=== PATIENT | male | born 1980 | race Caucasian/White ===

== ENCOUNTER 2017-09-21 07:49 | Inpatient (IN) | payer OTHER ==
[2017-09-21] MEDS ORDERED: ZOLPIDEM 5 MG TAB PO (11:00)
[2017-09-21] MEDS ORDERED: DOCUSATE SODIUM 100 MG CAP PO (11:00)
[2017-09-21] MEDS ORDERED: VANCOMYCIN IV PER PHARMACY XX (11:00)
[2017-09-21] MEDS ORDERED: NACL 0.9% 3 ML SYG IV (11:00)
[2017-09-21] MEDS ORDERED: DEXTROSE 50% 50 ML SYRINGE IV ×2 (12:00)
[2017-09-21] MEDS ORDERED: GLUCAGON 1 MG INJ IM (12:00)
[2017-09-21] MEDS ORDERED: GLUCOSE GEL 15 GRAM TUBE BUCCAL (12:00)
[2017-09-21] MEDS ORDERED: GLUCOSE GEL 15 GRAM TUBE PO ×2 (12:00)
[2017-09-21] MEDS: morphine 2 MG INJ IV (12:33)
[2017-09-21] MEDS: PIPER-TAZO 3.375 GM IV (PMX) 100 ML IVPB ×2 (12:34→17:49)
[2017-09-21] MEDS: INSULIN ASPART [NOVOLOG] 3 ML PEN SC ×5 (13:08→21:00)
[2017-09-21] MEDS: VANCOMYCIN 2 GM in SOD CHLORIDE 0.9% 500 ML IVPB (13:18)
[2017-09-21] MEDS: HYDROCODONE/APAP (5/325) TAB PO ×2 (14:56→21:58)
[2017-09-21] MEDS: MAGNESIUM HYDROXIDE 30ML CUP PO (14:56)
[2017-09-21 15:04] LABS: BLOOD UREA NITROGEN 14 mg/dl (7-20)
[2017-09-21 15:04] LABS: CREATININE 0.88 mg/dl (0.61-1.24)
[2017-09-21] MEDS: ACETAMINOPHEN 325 MG TAB PO (21:48)
[2017-09-21] MEDS: INSULIN GLARGINE [LANtus] 3 ML PEN SC (21:51)
[2017-09-21] MEDS ORDERED: PENDING SANTYL ORDER FOR WOUND CARE XX (22:00)
[2017-09-22] MEDS: PIPER-TAZO 3.375 GM IV (PMX) 100 ML IVPB ×5 (01:10→23:46)
[2017-09-22] MEDS: COLLAGENASE 30 GM TUBE TOP ×2 (01:18→10:54)
[2017-09-22] MEDS: ACCU-CHEK XX (02:00)
[2017-09-22] MEDS: VANCOMYCIN 1.5 GM in SOD CHLORIDE 0.9% 250 ML IVPB ×2 (02:16→13:11)
[2017-09-22] MEDS: HYDROCODONE/APAP (5/325) TAB PO (04:06)
[2017-09-22] MEDS: ONDANSETRON 4 MG INJ IV ×2 (05:36→20:27)
[2017-09-22] MEDS: ACETAMINOPHEN 325 MG TAB PO ×2 (05:37→16:09)
[2017-09-22 06:06] LABS: ADD MAN DIFF? NO
[2017-09-22 06:19] LABS: BASOPHIL # 0.1 10^3/ul (0.0-0.1); BASOPHILS % 0.3 % (0.0-2.0); EOSINOPHILS % 0.1 % (0.0-7.0); HEMATOCRIT 41.7 % (42.0-52.0); HEMOGLOBIN 13.9 g/dl (14.0-18.0); LYMPHOCYTES # 0.6 10^3/ul (0.8-2.9); LYMPHOCYTES % 3.5 % (15.0-51.0); MEAN CORPUSCULAR HEMOGLOBIN 29.6 pg (29.0-33.0); MEAN CORPUSCULAR HGB CONC 33.3 g/dl (32.0-37.0); MEAN CORPUSCULAR VOLUME 88.7 fl (82.0-101.0); MEAN PLATELET VOLUME 10.9 fl (7.4-10.4); MONOCYTE # 0.4 10^3/ul (0.3-0.9); NEUTROPHIL # 16.9 10^3/ul (1.6-7.5); NEUTROPHILS % 93.5 % (39.0-77.0); PLATELET COUNT 333 10^3/UL (140-415); RED CELL DISTRIBUTION WIDTH 12.9 % (11.5-14.5)
[2017-09-22 06:19] LABS: WHITE BLOOD COUNT 18.1 10^3/ul (4.8-10.8)
[2017-09-22 06:51] LABS: ANION GAP 17 (8-16); BLOOD UREA NITROGEN 19 mg/dl (7-20); CALCIUM 8.4 mg/dl (8.4-10.2); CARBON DIOXIDE 27 mmol/L (21-31); CHLORIDE 101 mmol/L (97-110); CREATININE 1.08 mg/dl (0.61-1.24); GLUCOSE 216 mg/dl (70-220); POTASSIUM 4.4 mmol/L (3.5-5.1); SODIUM 141 mmol/L (135-144)
[2017-09-22 06:54] LABS: HEMOGLOBIN A1C 11.7 % (0-5.9)
[2017-09-22] MEDS: INSULIN ASPART [NOVOLOG] 3 ML PEN SC ×7 (08:45→20:32)
[2017-09-22 09:53] LABS: ADD UMIC YES; UR ASCORBIC ACID NEGATIVE (NEGATIVE); UR BACTERIA FEW /HPF (NONE SEEN); UR BILIRUBIN (Dip) NEGATIVE (NEGATIVE); UR BLOOD (Dip) 2+ mg/dL (NEGATIVE); UR CLARITY SLIGHTLY CLOUDY (CLEAR); UR COLOR YELLOW (YELLOW); UR GLUCOSE (Dip) 3+ mg/dL (NEGATIVE); UR KETONES (Dip) TRACE mg/dL (NEGATIVE); UR LEUKOCYTE ESTERASE (Dip) 3+ Leu/ul (NEGATIVE); UR NITRITE (Dip) NEGATIVE (NEGATIVE); UR RBC 23 /HPF (0-5); UR SPECIFIC GRAVITY (Dip) 1.021 (1.003-1.030); UR TOTAL PROTEIN (Dip) 1+ mg/dl (NEGATIVE); UR UROBILINOGEN (Dip) NEGATIVE (NEGATIVE); UR WBC 53 /HPF (0-5)
[2017-09-22] MEDS: INSULIN GLARGINE [LANtus] 3 ML PEN SC (20:34)
[2017-09-22] MEDS ORDERED: ONDANSETRON INJ 8 MG in DEXTROSE 5% 50 ML IV (23:30)
[2017-09-22] MEDS: METOCLOPRAMIDE 10 MG INJ IV (23:46)
[2017-09-23 01:24] LABS: VANCOMYCIN,TROUGH 9.4 ug/ml (10.0-20.0)
[2017-09-23] MEDS: ACCU-CHEK XX (01:25)
[2017-09-23] MEDS: VANCOMYCIN 1.5 GM in SOD CHLORIDE 0.9% 250 ML IVPB (01:28)
[2017-09-23 06:08] LABS: ADD MAN DIFF? NO
[2017-09-23 06:10] LABS: WHITE BLOOD COUNT 12.2 10^3/ul (4.8-10.8)
[2017-09-23 06:10] LABS: BASOPHILS % 0.2 % (0.0-2.0); EOSINOPHILS % 0.1 % (0.0-7.0); HEMATOCRIT 36.2 % (42.0-52.0); LYMPHOCYTES % 8.3 % (15.0-51.0); MEAN CORPUSCULAR HGB CONC 33.1 g/dl (32.0-37.0); MEAN CORPUSCULAR VOLUME 87.4 fl (82.0-101.0); MEAN PLATELET VOLUME 10.6 fl (7.4-10.4); MONOCYTE # 0.6 10^3/ul (0.3-0.9); MONOCYTES % 4.6 % (0.0-11.0); NEUTROPHIL # 10.6 10^3/ul (1.6-7.5); NEUTROPHILS % 86.3 % (39.0-77.0); PLATELET COUNT 260 10^3/UL (140-415); RED BLOOD COUNT 4.14 10^6/ul (4.70-6.10); RED CELL DISTRIBUTION WIDTH 12.9 % (11.5-14.5)
[2017-09-23] MEDS: PIPER-TAZO 3.375 GM IV (PMX) 100 ML IVPB ×3 (06:31→20:50)
[2017-09-23 06:33] LABS: ANION GAP 16 (8-16); BLOOD UREA NITROGEN 18 mg/dl (7-20); CALCIUM 7.8 mg/dl (8.4-10.2); CARBON DIOXIDE 25 mmol/L (21-31); CHLORIDE 104 mmol/L (97-110); CREATININE 1.16 mg/dl (0.61-1.24); GLUCOSE 133 mg/dl (70-220); POTASSIUM 3.9 mmol/L (3.5-5.1); SODIUM 141 mmol/L (135-144)
[2017-09-23 06:49] LABS: FREE THYROXINE INDEX (Calc) 2.37 ug/ml (0.65-3.89); T3 UPTAKE 47.4 % (23.5-40.5)
[2017-09-23] MEDS: INSULIN ASPART [NOVOLOG] 3 ML PEN SC ×8 (08:00→20:54)
[2017-09-23] MEDS: COLLAGENASE 30 GM TUBE TOP (09:00)
[2017-09-23 09:02] LABS: ERYTHROCYTE SEDIMENTATION RATE 118 mm/Hr (0-15)
[2017-09-23] MEDS: VANCOMYCIN 2 GM in SOD CHLORIDE 0.9% 500 ML IVPB (14:48)
[2017-09-23] MEDS ORDERED: INSULIN ASPART [NOVOLOG] 3 ML PEN SC (17:35)
[2017-09-23] MEDS: morphine 2 MG INJ IV (17:47)
[2017-09-23] MEDS: INSULIN GLARGINE [LANtus] 3 ML PEN SC (20:57)
[2017-09-24] MEDS: PIPER-TAZO 3.375 GM IV (PMX) 100 ML IVPB ×4 (00:13→11:59)
[2017-09-24] MEDS: HYDROCODONE/APAP (5/325) TAB PO ×3 (00:22→21:52)
[2017-09-24] MEDS: ACCU-CHEK XX (00:55)
[2017-09-24] MEDS: VANCOMYCIN 2 GM in SOD CHLORIDE 0.9% 500 ML IVPB ×2 (03:14→15:25)
[2017-09-24] MEDS: INSULIN ASPART [NOVOLOG] 3 ML PEN SC ×7 (08:00→21:00)
[2017-09-24] MEDS: COLLAGENASE 30 GM TUBE TOP (09:14)
[2017-09-24] MEDS: INFLUENZA VIRUS VACCINE 0.5 ML SYG IM* (12:00)
[2017-09-24] MEDS: morphine 2 MG INJ IV (15:26)
[2017-09-24] MEDS: INSULIN GLARGINE [LANtus] 3 ML PEN SC (21:53)
[2017-09-25] MEDS: ACCU-CHEK XX (02:00)
[2017-09-25] MEDS: VANCOMYCIN 2 GM in SOD CHLORIDE 0.9% 500 ML IVPB ×2 (03:40→15:06)
[2017-09-25] MEDS: HYDROCODONE/APAP (5/325) TAB PO ×3 (07:47→20:54)
[2017-09-25] MEDS: INSULIN ASPART [NOVOLOG] 3 ML PEN SC ×7 (08:00→20:52)
[2017-09-25] MEDS: COLLAGENASE 30 GM TUBE TOP (12:24)
[2017-09-25] MEDS: INSULIN GLARGINE [LANtus] 3 ML PEN SC (20:52)
[2017-09-26] MEDS: ACCU-CHEK XX ×2 (01:18→21:06)
[2017-09-26] MEDS: HYDROCODONE/APAP (5/325) TAB PO ×5 (02:36→22:06)
[2017-09-26] MEDS: VANCOMYCIN 1.75 GM in SOD CHLORIDE 0.9% 500 ML IVPB ×2 (02:36→16:01)
[2017-09-26] MEDS: MAGNESIUM HYDROXIDE 30ML CUP PO (03:01)
[2017-09-26 07:22] LABS: BLOOD UREA NITROGEN 16 mg/dl (7-20)
[2017-09-26] MEDS: INSULIN ASPART [NOVOLOG] 3 ML PEN SC ×7 (08:28→21:00)
[2017-09-26] MEDS: COLLAGENASE 30 GM TUBE TOP (08:29)
[2017-09-26] MEDS: LIDOCAINE 1% (MPF) 5 ML VIAL SC (16:55)
[2017-09-26] MEDS: SOD CHLORIDE 0.9% 100 ML (17:00)
[2017-09-26] MEDS: morphine 2 MG INJ IV (20:59)
[2017-09-26] MEDS: INSULIN GLARGINE [LANtus] 3 ML PEN SC (21:06)
[2017-09-26] MEDS: METOCLOPRAMIDE 10 MG INJ IV (21:14)
[2017-09-27] MEDS: VANCOMYCIN 1.75 GM in SOD CHLORIDE 0.9% 500 ML IVPB ×2 (03:45→15:13)
[2017-09-27] MEDS: METOCLOPRAMIDE 10 MG INJ IV (07:50)
[2017-09-27] MEDS: INSULIN ASPART [NOVOLOG] 3 ML PEN SC ×7 (08:00→21:00)
[2017-09-27] MEDS: COLLAGENASE 30 GM TUBE TOP (08:49)
[2017-09-27] MEDS: HYDROCODONE/APAP (5/325) TAB PO ×2 (10:05→18:18)
[2017-09-27] MEDS: INSULIN GLARGINE [LANtus] 3 ML PEN SC (22:11)
== END 2017-09-27 22:25 | disposition home health service (06) | DRG 872 ==
LOC: PP2 07:49
PROVIDERS: Internal Medicine
PROC: 02HV33Z Insertion of Infusion Device into Superior Vena Cava, Percutaneous Approach (ICD-10-PCS; principal; 2017-09-26)
DX: A41.9 Sepsis, unspecified organism (principal); E11.42 Type 2 diabetes mellitus with diabetic polyneuropathy; E11.621 Type 2 diabetes mellitus with foot ulcer; M86.9 Osteomyelitis, unspecified; E66.9 Obesity, unspecified; Z68.33 Body mass index [BMI] 33.0-33.9, adult; Z89.421 Acquired absence of other right toe(s); M21.40 Flat foot [pes planus] (acquired), unspecified foot; E11.65 Type 2 diabetes mellitus with hyperglycemia; F17.200 Nicotine dependence, unspecified, uncomplicated; N50.82 Scrotal pain; L97.522 Non-pressure chronic ulcer of other part of left foot with fat layer exposed; B95.4 Other streptococcus as the cause of diseases classified elsewhere; A49.02 Methicillin resistant Staphylococcus aureus infection, unspecified site; E11.610 Type 2 diabetes mellitus with diabetic neuropathic arthropathy; E11.69 Type 2 diabetes mellitus with other specified complication
CPT/HCPCS: 36569; 71045; 73718; 76870; 76937; 80048; 80202; 81001; 82565; 82962; 83036; 83735; 84100; 84436; 84479; 84520; 85025; 85651; 87040; 87070; 87081; 87086; 93306

== ENCOUNTER 2018-08-13 17:49 | Inpatient (IN) | payer OTHER ==
[2018-08-13 21:00] LABS: ADD MAN DIFF? NO; URINE BLOOD (Dip) POC Trace-lysed (NEGATIVE); URINE KETONES (Dip) POC Negative (NEGATIVE); URINE LEUKOCYTE EST (Dip) POC Negative (NEGATIVE); URINE NITRITE (Dip) POC Negative (NEGATIVE); URINE TOTAL PROTEIN POC Negative (NEGATIVE)
[2018-08-13 21:00] LABS: URINE PH (Dip) POC 5.5 (5.0-8.5)
[2018-08-13 21:03] LABS: BASOPHIL # 0.1 10^3/ul (0.0-0.1); BASOPHILS % 0.5 % (0.0-2.0); EOSINOPHILS # 0.3 10^3/ul (0.0-0.5); EOSINOPHILS % 1.9 % (0.0-7.0); HEMATOCRIT 47.5 % (42.0-52.0); HEMOGLOBIN 16.4 g/dl (14.0-18.0); LYMPHOCYTES # 2.5 10^3/ul (0.8-2.9); LYMPHOCYTES % 18.7 % (15.0-51.0); MEAN CORPUSCULAR HEMOGLOBIN 29.8 pg (29.0-33.0); MEAN CORPUSCULAR HGB CONC 34.5 g/dl (32.0-37.0); MEAN CORPUSCULAR VOLUME 86.2 fl (82.0-101.0); MEAN PLATELET VOLUME 10.8 fl (7.4-10.4); MONOCYTE # 0.6 10^3/ul (0.3-0.9); MONOCYTES % 4.3 % (0.0-11.0); NEUTROPHIL # 9.7 10^3/ul (1.6-7.5); PLATELET COUNT 360 10^3/UL (140-415); RED BLOOD COUNT 5.51 10^6/ul (4.70-6.10); RED CELL DISTRIBUTION WIDTH 13.5 % (11.5-14.5)
[2018-08-13 21:03] LABS: WHITE BLOOD COUNT 13.1 10^3/ul (4.8-10.8)
[2018-08-13 21:21] LABS: ANION GAP 12 (5-13); BLOOD UREA NITROGEN 19 mg/dl (7-20); CARBON DIOXIDE 23 mmol/L (21-31); CHLORIDE 101 mmol/L (97-110); CREATININE 1.06 mg/dl (0.61-1.24); Estimated GFR > 60 mL/min (>60); POTASSIUM 4.9 mmol/L (3.5-5.1); SODIUM 136 mmol/L (135-144)
[2018-08-13 21:23] LABS: GLUCOSE 423 mg/dl (70-220)
[2018-08-13 21:30] LABS: INR 0.93; PROTIME 12.6 Sec (11.9-14.9)
[2018-08-13 21:31] LABS: PARTIAL THROMBOPLASTIN TIME 32.3 Sec (23.0-35.0)
[2018-08-13 22:10] LABS: ERYTHROCYTE SEDIMENTATION RATE 35 mm/Hr (0-15)
[2018-08-13] MEDS ORDERED: DOCUSATE SODIUM 100 MG CAP PO (22:30)
[2018-08-13] MEDS ORDERED: morphine 2 MG INJ IV (22:30)
[2018-08-13] MEDS ORDERED: ENOXAPARIN 40 MG/0.4 ML SYG SC (22:30)
[2018-08-13] MEDS ORDERED: BISACODYL (EC) 5 MG TAB PO (22:30)
[2018-08-13] MEDS ORDERED: NACL 0.9% 3 ML SYG IV (22:30)
[2018-08-13] MEDS ORDERED: ACETAMINOPHEN 325 MG TAB PO (22:30)
[2018-08-13] MEDS ORDERED: ONDANSETRON 4 MG INJ IV (22:30)
[2018-08-13] MEDS: morphine 4 MG/ML VIAL IV (22:46)
[2018-08-13] MEDS: ONDANSETRON 4 MG INJ IV (22:46)
[2018-08-13] MEDS: HYDROCODONE/APAP (5/325) TAB PO (22:47)
[2018-08-13] MEDS: INSULIN LISPRO 100 UNIT/ML VIAL SC (23:03)
[2018-08-13] MEDS: SOD CHLORIDE 0.9% 1,000 ML IV (23:04)
[2018-08-13] MEDS: INSULIN GLARGINE [LANTus] (100 UNITS/ML) SYG SC (23:15)
[2018-08-13] MEDS: PIPER-TAZO 3.375 GM IV (PMX) 100 ML IVPB (23:17)
[2018-08-14] MEDS: VANCOMYCIN 1 GM (PMX) 250 ML IVPB (00:11)
[2018-08-14] MEDS ORDERED: PENDING SANTYL ORDER FOR WOUND CARE XX (01:30)
[2018-08-14] MEDS: INSULIN ASPART [NOVOLOG] 3 ML PEN SC ×7 (01:39→20:25)
[2018-08-14] MEDS ORDERED: VANCOMYCIN IV PER PHARMACY XX (02:00)
[2018-08-14] MEDS ORDERED: CEFTRIAXONE 2 GM/50 ML (PMX) 50 ML IVPB (02:00)
[2018-08-14] MEDS: ACCU-CHEK XX (02:00)
[2018-08-14] MEDS: CEFEPIME 2GM/50 ML (PMX) 50 ML IVPB ×3 (02:42→22:09)
[2018-08-14] MEDS: VANCOMYCIN HCL 1.25 GM in SOD CHLORIDE 0.9% 250 ML IVPB (05:34)
[2018-08-14] MEDS: PANTOPRAZOLE (EC) 40 MG TAB PO (05:34)
[2018-08-14 06:19] LABS: ADD MAN DIFF? NO
[2018-08-14 06:26] LABS: WHITE BLOOD COUNT 10.6 10^3/ul (4.8-10.8)
[2018-08-14 06:26] LABS: BASOPHIL # 0.1 10^3/ul (0.0-0.1); BASOPHILS % 0.6 % (0.0-2.0); EOSINOPHILS # 0.4 10^3/ul (0.0-0.5); EOSINOPHILS % 3.7 % (0.0-7.0); HEMATOCRIT 40.4 % (42.0-52.0); HEMOGLOBIN 13.7 g/dl (14.0-18.0); LYMPHOCYTES % 28.8 % (15.0-51.0); MEAN CORPUSCULAR HEMOGLOBIN 29.8 pg (29.0-33.0); MEAN CORPUSCULAR HGB CONC 33.9 g/dl (32.0-37.0); MEAN CORPUSCULAR VOLUME 87.8 fl (82.0-101.0); MEAN PLATELET VOLUME 10.6 fl (7.4-10.4); MONOCYTE # 0.6 10^3/ul (0.3-0.9); MONOCYTES % 5.4 % (0.0-11.0); NEUTROPHIL # 6.4 10^3/ul (1.6-7.5); NEUTROPHILS % 60.8 % (39.0-77.0); PLATELET COUNT 296 10^3/UL (140-415); RED CELL DISTRIBUTION WIDTH 13.5 % (11.5-14.5)
[2018-08-14 06:45] LABS: HEMOGLOBIN A1C 12.5 % (0-5.9)
[2018-08-14 06:56] LABS: ALANINE AMINOTRANSFERASE 17 IU/L (13-69); ALBUMIN 3.6 g/dl (3.3-4.9); ALBUMIN/GLOBULIN RATIO 1.02; ALKALINE PHOSPHATASE 112 IU/L (42-121); ANION GAP 11 (5-13); ASPARTATE AMINO TRANSFERASE 17 IU/L (15-46); BILIRUBIN,INDIRECT 0.3 mg/dl (0-1.1); BILIRUBIN,TOTAL 0.3 mg/dl (0.2-1.3); BLOOD UREA NITROGEN 17 mg/dl (7-20); CALCIUM 9.1 mg/dl (8.4-10.2); CARBON DIOXIDE 25 mmol/L (21-31); CHLORIDE 102 mmol/L (97-110); CHOL/HDL RATIO 6.4 RATIO; CHOLESTEROL 135 mg/dl (100-200); CREATININE 1.04 mg/dl (0.61-1.24); Estimated GFR > 60 mL/min (>60); GLUCOSE 237 mg/dl (70-220); HDL CHOLESTEROL 21 mg/dl (28-63); LDL CHOLESTEROL,CALCULATED 28 mg/dl; MAGNESIUM 2.1 mg/dl (1.7-2.5); POTASSIUM 4.4 mmol/L (3.5-5.1); SODIUM 138 mmol/L (135-144); TOTAL PROTEIN 7.1 g/dl (6.1-8.1); TRIGLYCERIDES 432 mg/dl (0-149)
[2018-08-14] MEDS: COLLAGENASE 5 GM (UD JAR) TOP (08:57)
[2018-08-14] MEDS ORDERED: GLUCOSE GEL 15 GRAM TUBE PO ×2 (09:00)
[2018-08-14] MEDS ORDERED: NON-FORMULARY/PATIENT OWN MED (Omeprazole* 20 MG) PO (09:00)
[2018-08-14] MEDS ORDERED: COLLAGENASE 5 GM (UD JAR) TOP (09:00)
[2018-08-14] MEDS ORDERED: GLUCOSE GEL 15 GRAM TUBE BUCCAL (09:00)
[2018-08-14] MEDS ORDERED: GLUCAGON 1 MG INJ IM (09:00)
[2018-08-14] MEDS ORDERED: DEXTROSE 50% 50 ML SYRINGE IV ×2 (09:00)
[2018-08-14] MEDS: INSULIN GLARGINE [LANTus] (100 UNITS/ML) SYG SC ×2 (12:23→20:25)
[2018-08-14] MEDS: HYDROCODONE/APAP (5/325) TAB PO (12:28)
[2018-08-14] MEDS: morphine SULFATE/PF (2 MG/2 ML) SYG IV (16:46)
[2018-08-14] MEDS: VANCOMYCIN HCL 1.75 GM in SOD CHLORIDE 0.9% 500 ML IVPB (17:58)
[2018-08-14] MEDS: CLOTRIMAZOLE 1% 30 GM CR TOP (22:10)
[2018-08-15] MEDS: ACCU-CHEK XX (01:33)
[2018-08-15] MEDS: PANTOPRAZOLE (EC) 40 MG TAB PO (05:30)
[2018-08-15] MEDS: VANCOMYCIN HCL 1.75 GM in SOD CHLORIDE 0.9% 500 ML IVPB ×2 (05:31→17:55)
[2018-08-15 05:52] LABS: ADD MAN DIFF? NO
[2018-08-15 05:55] LABS: WHITE BLOOD COUNT 10.6 10^3/ul (4.8-10.8)
[2018-08-15 05:55] LABS: BASOPHIL # 0.1 10^3/ul (0.0-0.1); BASOPHILS % 0.6 % (0.0-2.0); EOSINOPHILS # 0.3 10^3/ul (0.0-0.5); HEMATOCRIT 42.2 % (42.0-52.0); HEMOGLOBIN 13.9 g/dl (14.0-18.0); LYMPHOCYTES # 2.2 10^3/ul (0.8-2.9); LYMPHOCYTES % 20.5 % (15.0-51.0); MEAN CORPUSCULAR HEMOGLOBIN 29.3 pg (29.0-33.0); MEAN CORPUSCULAR HGB CONC 32.9 g/dl (32.0-37.0); MEAN PLATELET VOLUME 10.7 fl (7.4-10.4); MONOCYTE # 0.5 10^3/ul (0.3-0.9); MONOCYTES % 4.6 % (0.0-11.0); NEUTROPHIL # 7.4 10^3/ul (1.6-7.5); NEUTROPHILS % 70.3 % (39.0-77.0); PLATELET COUNT 312 10^3/UL (140-415); RED BLOOD COUNT 4.74 10^6/ul (4.70-6.10); RED CELL DISTRIBUTION WIDTH 13.3 % (11.5-14.5)
[2018-08-15 06:42] LABS: ANION GAP 10 (5-13); BLOOD UREA NITROGEN 15 mg/dl (7-20); CALCIUM 8.8 mg/dl (8.4-10.2); CARBON DIOXIDE 24 mmol/L (21-31); CHLORIDE 102 mmol/L (97-110); CREATININE 0.93 mg/dl (0.61-1.24); Estimated GFR > 60 mL/min (>60); GLUCOSE 264 mg/dl (70-220); POTASSIUM 4.4 mmol/L (3.5-5.1); SODIUM 136 mmol/L (135-144)
[2018-08-15] MEDS: CLOTRIMAZOLE 1% 30 GM CR TOP ×2 (08:19→21:17)
[2018-08-15] MEDS: COLLAGENASE 5 GM (UD JAR) TOP (08:19)
[2018-08-15] MEDS: CEFEPIME 2GM/50 ML (PMX) 50 ML IVPB ×2 (08:19→21:18)
[2018-08-15] MEDS: INSULIN ASPART [NOVOLOG] 3 ML PEN SC ×7 (08:22→21:00)
[2018-08-15] MEDS: INSULIN GLARGINE [LANTus] (100 UNITS/ML) SYG SC ×2 (08:23→21:24)
[2018-08-15] MEDS: GEMFIBROZIL 600 MG TAB PO ×2 (10:18→21:17)
[2018-08-15] MEDS: HYDROCODONE/APAP (5/325) TAB PO ×2 (15:53→23:40)
[2018-08-15 17:46] LABS: VANCOMYCIN,TROUGH 11.3 ug/ml (10.0-20.0)
[2018-08-15] MEDS ORDERED: ATORVASTATIN 40 MG TAB PO (21:00)
[2018-08-15] MEDS: ATORVASTATIN 10 MG TAB PO (21:17)
[2018-08-16] MEDS: ACCU-CHEK XX ×4 (02:00→21:00)
[2018-08-16] MEDS: PANTOPRAZOLE (EC) 40 MG TAB PO (05:53)
[2018-08-16] MEDS: VANCOMYCIN HCL 1.75 GM in SOD CHLORIDE 0.9% 500 ML IVPB ×2 (05:54→17:42)
[2018-08-16 06:19] LABS: ADD MAN DIFF? NO
[2018-08-16] MEDS: HYDROCODONE/APAP (5/325) TAB PO ×2 (06:24→23:47)
[2018-08-16 06:30] LABS: WHITE BLOOD COUNT 8.9 10^3/ul (4.8-10.8)
[2018-08-16 06:30] LABS: BASOPHIL # 0.1 10^3/ul (0.0-0.1); BASOPHILS % 0.6 % (0.0-2.0); EOSINOPHILS # 0.3 10^3/ul (0.0-0.5); EOSINOPHILS % 3.6 % (0.0-7.0); HEMATOCRIT 41.7 % (42.0-52.0); HEMOGLOBIN 13.9 g/dl (14.0-18.0); LYMPHOCYTES # 2.4 10^3/ul (0.8-2.9); LYMPHOCYTES % 27.4 % (15.0-51.0); MEAN CORPUSCULAR HEMOGLOBIN 29.5 pg (29.0-33.0); MEAN CORPUSCULAR HGB CONC 33.3 g/dl (32.0-37.0); MEAN CORPUSCULAR VOLUME 88.5 fl (82.0-101.0); MEAN PLATELET VOLUME 10.9 fl (7.4-10.4); MONOCYTE # 0.4 10^3/ul (0.3-0.9); MONOCYTES % 4.3 % (0.0-11.0); NEUTROPHIL # 5.6 10^3/ul (1.6-7.5); NEUTROPHILS % 63.2 % (39.0-77.0); PLATELET COUNT 204 10^3/UL (140-415); RED BLOOD COUNT 4.71 10^6/ul (4.70-6.10); RED CELL DISTRIBUTION WIDTH 13.3 % (11.5-14.5)
[2018-08-16 06:50] LABS: ANION GAP 9 (5-13); BLOOD UREA NITROGEN 13 mg/dl (7-20); CALCIUM 9.1 mg/dl (8.4-10.2); CARBON DIOXIDE 24 mmol/L (21-31); CHLORIDE 104 mmol/L (97-110); CREATININE 0.82 mg/dl (0.61-1.24); Estimated GFR > 60 mL/min (>60); GLUCOSE 218 mg/dl (70-220); POTASSIUM 4.5 mmol/L (3.5-5.1); SODIUM 137 mmol/L (135-144)
[2018-08-16] MEDS: INSULIN ASPART [NOVOLOG] 3 ML PEN SC ×5 (08:00→21:00)
[2018-08-16] MEDS: CLOTRIMAZOLE 1% 30 GM CR TOP ×2 (08:01→21:27)
[2018-08-16] MEDS: INSULIN GLARGINE [LANTus] (100 UNITS/ML) SYG SC ×2 (08:01→20:01)
[2018-08-16] MEDS: GEMFIBROZIL 600 MG TAB PO ×2 (08:01→21:21)
[2018-08-16] MEDS: COLLAGENASE 5 GM (UD JAR) TOP (08:02)
[2018-08-16] MEDS: CEFEPIME 2GM/50 ML (PMX) 50 ML IVPB ×2 (10:32→21:21)
[2018-08-16] MEDS: morphine 2 MG INJ IV ×2 (10:44→21:40)
[2018-08-16] MEDS: metFORMIN 850 MG TAB PO ×2 (12:21→17:20)
[2018-08-16] MEDS: REPAGLINIDE 2 MG TAB PO ×2 (12:21→17:20)
[2018-08-16] MEDS: FISH OIL 1,000 MG CAP PO (21:21)
[2018-08-16] MEDS: ATORVASTATIN 10 MG TAB PO (21:40)
[2018-08-17] MEDS: ACCU-CHEK XX ×5 (02:00→21:00)
[2018-08-17] MEDS: PANTOPRAZOLE (EC) 40 MG TAB PO (06:30)
[2018-08-17] MEDS: VANCOMYCIN HCL 1.75 GM in SOD CHLORIDE 0.9% 500 ML IVPB (06:33)
[2018-08-17] MEDS: REPAGLINIDE 2 MG TAB PO ×3 (08:09→17:20)
[2018-08-17] MEDS: metFORMIN 850 MG TAB PO ×2 (08:09→17:23)
[2018-08-17] MEDS: INSULIN GLARGINE [LANTus] (100 UNITS/ML) SYG SC ×2 (08:11→20:12)
[2018-08-17] MEDS: INSULIN ASPART [NOVOLOG] 3 ML PEN SC ×4 (08:12→21:00)
[2018-08-17] MEDS: COLLAGENASE 5 GM (UD JAR) TOP (09:00)
[2018-08-17] MEDS: CLOTRIMAZOLE 1% 30 GM CR TOP ×2 (09:00→21:16)
[2018-08-17] MEDS: CEFEPIME 2GM/50 ML (PMX) 50 ML IVPB (09:14)
[2018-08-17] MEDS: GEMFIBROZIL 600 MG TAB PO ×2 (09:14→21:13)
[2018-08-17] MEDS: FISH OIL 1,000 MG CAP PO ×2 (09:14→21:12)
[2018-08-17] MEDS: ACETYLCYSTEINE 600 MG CAP PO ×2 (17:19→21:13)
[2018-08-17] MEDS: HYDROCODONE/APAP (5/325) TAB PO ×2 (17:31→23:32)
[2018-08-17] MEDS: LEVOFLOXACIN 750 MG TABLET PO (18:43)
[2018-08-17] MEDS: AMPICILLIN 1 GM/NS (PMX) 50 ML IVPB (20:04)
[2018-08-17] MEDS: morphine 2 MG INJ IV (20:04)
[2018-08-17] MEDS: ATORVASTATIN 40 MG TAB PO (21:13)
[2018-08-18] MEDS: ACCU-CHEK XX ×5 (02:00→21:00)
[2018-08-18] MEDS: LEVOFLOXACIN 750 MG TABLET PO (06:14)
[2018-08-18] MEDS: AMPICILLIN 1 GM/NS (PMX) 50 ML IVPB ×3 (06:14→22:04)
[2018-08-18] MEDS: PANTOPRAZOLE (EC) 40 MG TAB PO (06:14)
[2018-08-18 07:09] LABS: ANION GAP 11 (5-13); BLOOD UREA NITROGEN 12 mg/dl (7-20); CALCIUM 9.3 mg/dl (8.4-10.2); CARBON DIOXIDE 24 mmol/L (21-31); CHLORIDE 104 mmol/L (97-110); CREATININE 0.88 mg/dl (0.61-1.24); Estimated GFR > 60 mL/min (>60); GLUCOSE 119 mg/dl (70-220); SODIUM 139 mmol/L (135-144)
[2018-08-18] MEDS: REPAGLINIDE 2 MG TAB PO ×3 (07:35→17:30)
[2018-08-18] MEDS: metFORMIN 850 MG TAB PO ×2 (08:00→17:31)
[2018-08-18] MEDS: DEXTROSE 5%-0.45% NACL 1,000 ML IV (08:56)
[2018-08-18] MEDS: FISH OIL 1,000 MG CAP PO ×2 (08:57→20:26)
[2018-08-18] MEDS: GEMFIBROZIL 600 MG TAB PO ×2 (08:57→20:26)
[2018-08-18] MEDS: ACETYLCYSTEINE 600 MG CAP PO ×2 (08:57→20:26)
[2018-08-18] MEDS: INSULIN ASPART [NOVOLOG] 3 ML PEN SC ×4 (08:59→21:00)
[2018-08-18] MEDS: INSULIN GLARGINE [LANTus] (100 UNITS/ML) SYG SC ×2 (09:00→20:25)
[2018-08-18] MEDS: CLOTRIMAZOLE 1% 30 GM CR TOP ×2 (09:00→21:00)
[2018-08-18] MEDS: COLLAGENASE 5 GM (UD JAR) TOP (09:00)
[2018-08-18] MEDS ORDERED: LIDOCAINE 1% (MDV) 20 ML INJ (10:39)
[2018-08-18] MEDS ORDERED: IODIXANOL LOCM 100 ML BTL (10:39)
[2018-08-18] MEDS ORDERED: HEPARIN 1000 UNITS/NS (A-LINE) 1,000 ML (10:39)
[2018-08-18] MEDS ORDERED: MIDAZOLAM 1 MG/ML 2 ML INJ (13:00)
[2018-08-18] MEDS: BUPIVACAINE 0.5% (SDV) 30 ML INJ (13:05)
[2018-08-18] MEDS: POLYMYXIN/BACITRACIN 1L IRRIG IRR (13:27)
[2018-08-18] MEDS: VANCOMYCIN 1 GM INJ (13:43)
[2018-08-18] MEDS ORDERED: ONDANSETRON 4 MG INJ (14:05)
[2018-08-18] MEDS ORDERED: LIDOCAINE 2% (SDV) 5 ML INJ (14:05)
[2018-08-18] MEDS ORDERED: CEFAZOLIN 1 GM INJ (14:05)
[2018-08-18] MEDS ORDERED: PROPOFOL 20 ML (14:05)
[2018-08-18] MEDS ORDERED: FENTAnyl 50 MCG/ML VIAL IV (14:30)
[2018-08-18] MEDS ORDERED: LABETALOL HCL 20MG INJ IV (14:30)
[2018-08-18] MEDS ORDERED: HYDROmorphONE 1 MG/5 ML IV SYRINGE IV ×2 (14:30)
[2018-08-18] MEDS ORDERED: hydrALAzine 20 MG INJ IV (14:30)
[2018-08-18] MEDS ORDERED: DIPHENHYDRAMINE 50 MG INJ IV (14:30)
[2018-08-18] MEDS ORDERED: MEPERIDINE 25 MG INJ IV (14:30)
[2018-08-18] MEDS ORDERED: ONDANSETRON 4 MG INJ IV (14:30)
[2018-08-18] MEDS: morphine 2 MG INJ IV ×2 (17:27→22:10)
[2018-08-18] MEDS: ATORVASTATIN 40 MG TAB PO (20:26)
[2018-08-19] MEDS: HYDROCODONE/APAP (5/325) TAB PO ×3 (01:03→23:40)
[2018-08-19] MEDS: ACCU-CHEK XX ×5 (02:00→21:00)
[2018-08-19] MEDS: PANTOPRAZOLE (EC) 40 MG TAB PO (05:51)
[2018-08-19] MEDS: LEVOFLOXACIN 750 MG TABLET PO (05:51)
[2018-08-19] MEDS: AMPICILLIN 1 GM/NS (PMX) 50 ML IVPB ×3 (05:51→21:31)
[2018-08-19 06:26] LABS: ADD MAN DIFF? NO
[2018-08-19 06:30] LABS: BASOPHIL # 0.1 10^3/ul (0.0-0.1); BASOPHILS % 0.5 % (0.0-2.0); EOSINOPHILS # 0.3 10^3/ul (0.0-0.5); EOSINOPHILS % 2.1 % (0.0-7.0); HEMATOCRIT 43.3 % (42.0-52.0); HEMOGLOBIN 14.1 g/dl (14.0-18.0); LYMPHOCYTES # 2.8 10^3/ul (0.8-2.9); LYMPHOCYTES % 21.7 % (15.0-51.0); MEAN CORPUSCULAR HEMOGLOBIN 29.6 pg (29.0-33.0); MEAN CORPUSCULAR HGB CONC 32.6 g/dl (32.0-37.0); MEAN PLATELET VOLUME 10.1 fl (7.4-10.4); MONOCYTE # 0.7 10^3/ul (0.3-0.9); MONOCYTES % 5.4 % (0.0-11.0); PLATELET COUNT 352 10^3/UL (140-415); RED BLOOD COUNT 4.76 10^6/ul (4.70-6.10); RED CELL DISTRIBUTION WIDTH 13.4 % (11.5-14.5)
[2018-08-19 06:30] LABS: WHITE BLOOD COUNT 13.1 10^3/ul (4.8-10.8)
[2018-08-19 07:02] LABS: ANION GAP 13 (5-13); BLOOD UREA NITROGEN 13 mg/dl (7-20); CALCIUM 9.5 mg/dl (8.4-10.2); CARBON DIOXIDE 24 mmol/L (21-31); CHLORIDE 104 mmol/L (97-110); Estimated GFR > 60 mL/min (>60); GLUCOSE 75 mg/dl (70-220); POTASSIUM 3.7 mmol/L (3.5-5.1); SODIUM 141 mmol/L (135-144)
[2018-08-19] MEDS: INSULIN ASPART [NOVOLOG] 3 ML PEN SC ×4 (08:00→21:00)
[2018-08-19] MEDS: REPAGLINIDE 2 MG TAB PO ×3 (09:05→18:41)
[2018-08-19] MEDS: COLLAGENASE 5 GM (UD JAR) TOP (09:06)
[2018-08-19] MEDS: FISH OIL 1,000 MG CAP PO ×2 (09:06→20:48)
[2018-08-19] MEDS: metFORMIN 850 MG TAB PO ×2 (09:06→18:41)
[2018-08-19] MEDS: ACETYLCYSTEINE 600 MG CAP PO ×2 (09:06→20:48)
[2018-08-19] MEDS: CLOTRIMAZOLE 1% 30 GM CR TOP ×2 (09:07→20:49)
[2018-08-19] MEDS: INSULIN GLARGINE [LANTus] (100 UNITS/ML) SYG SC (09:09)
[2018-08-19] MEDS: GEMFIBROZIL 600 MG TAB PO ×2 (09:11→20:48)
[2018-08-19] MEDS: morphine LIQ (10 MG/5 ML) CUP PO (14:37)
[2018-08-19] MEDS: ATORVASTATIN 40 MG TAB PO (20:48)
[2018-08-20] MEDS: ACCU-CHEK XX ×5 (02:00→21:03)
[2018-08-20] MEDS: AMPICILLIN 1 GM/NS (PMX) 50 ML IVPB ×3 (05:40→20:54)
[2018-08-20] MEDS: LEVOFLOXACIN 750 MG TABLET PO (05:41)
[2018-08-20] MEDS: PANTOPRAZOLE (EC) 40 MG TAB PO (05:41)
[2018-08-20] MEDS: HYDROCODONE/APAP (5/325) TAB PO ×2 (05:47→15:22)
[2018-08-20 05:56] LABS: ADD MAN DIFF? NO
[2018-08-20 06:01] LABS: BASOPHIL # 0.1 10^3/ul (0.0-0.1); BASOPHILS % 0.5 % (0.0-2.0); EOSINOPHILS # 0.2 10^3/ul (0.0-0.5); EOSINOPHILS % 2.2 % (0.0-7.0); HEMATOCRIT 40.9 % (42.0-52.0); HEMOGLOBIN 13.4 g/dl (14.0-18.0); LYMPHOCYTES # 2.5 10^3/ul (0.8-2.9); MEAN CORPUSCULAR HEMOGLOBIN 29.3 pg (29.0-33.0); MEAN CORPUSCULAR HGB CONC 32.8 g/dl (32.0-37.0); MEAN CORPUSCULAR VOLUME 89.5 fl (82.0-101.0); MEAN PLATELET VOLUME 10.2 fl (7.4-10.4); MONOCYTE # 0.6 10^3/ul (0.3-0.9); MONOCYTES % 5.2 % (0.0-11.0); NEUTROPHIL # 7.4 10^3/ul (1.6-7.5); NEUTROPHILS % 68.2 % (39.0-77.0); PLATELET COUNT 322 10^3/UL (140-415); RED BLOOD COUNT 4.57 10^6/ul (4.70-6.10); RED CELL DISTRIBUTION WIDTH 13.7 % (11.5-14.5)
[2018-08-20 06:01] LABS: WHITE BLOOD COUNT 10.9 10^3/ul (4.8-10.8)
[2018-08-20 06:56] LABS: ANION GAP 10 (5-13); BLOOD UREA NITROGEN 10 mg/dl (7-20); CALCIUM 9.3 mg/dl (8.4-10.2); CARBON DIOXIDE 26 mmol/L (21-31); CHLORIDE 104 mmol/L (97-110); CREATININE 0.93 mg/dl (0.61-1.24); Estimated GFR > 60 mL/min (>60); GLUCOSE 73 mg/dl (70-220); POTASSIUM 3.8 mmol/L (3.5-5.1); SODIUM 140 mmol/L (135-144)
[2018-08-20] MEDS ORDERED: INSULIN GLARGINE [LANTus] (100 UNITS/ML) SYG SC (08:00)
[2018-08-20] MEDS: INSULIN ASPART [NOVOLOG] 3 ML PEN SC ×4 (08:00→21:00)
[2018-08-20] MEDS: REPAGLINIDE 2 MG TAB PO ×2 (08:34→11:30)
[2018-08-20] MEDS: metFORMIN 850 MG TAB PO ×2 (08:35→18:05)
[2018-08-20] MEDS: INSULIN GLARGINE [LANTus] (100 UNITS/ML) SYG SC (08:51)
[2018-08-20] MEDS: COLLAGENASE 5 GM (UD JAR) TOP (08:51)
[2018-08-20] MEDS: ASPIRIN 81 MG TAB PO (08:52)
[2018-08-20] MEDS: FISH OIL 1,000 MG CAP PO ×2 (08:52→20:59)
[2018-08-20] MEDS: morphine LIQ (10 MG/5 ML) CUP PO (08:52)
[2018-08-20] MEDS: ACETYLCYSTEINE 600 MG CAP PO ×2 (08:53→20:59)
[2018-08-20] MEDS: CLOTRIMAZOLE 1% 30 GM CR TOP ×2 (08:53→21:00)
[2018-08-20] MEDS: GEMFIBROZIL 600 MG TAB PO ×2 (08:53→20:59)
[2018-08-20] MEDS: ALTEPLASE (CATHFLO) 2 MG INJ CATHETER (14:57)
[2018-08-20] MEDS: REPAGLINIDE 1 MG TAB PO (18:05)
[2018-08-20] MEDS: ATORVASTATIN 40 MG TAB PO (20:59)
[2018-08-21] MEDS: ACCU-CHEK XX ×3 (02:00→11:30)
[2018-08-21] MEDS: LEVOFLOXACIN 750 MG TABLET PO (05:20)
[2018-08-21] MEDS: AMPICILLIN 1 GM/NS (PMX) 50 ML IVPB ×2 (05:20→13:05)
[2018-08-21] MEDS: PANTOPRAZOLE (EC) 40 MG TAB PO (05:20)
[2018-08-21 06:21] LABS: ANION GAP 10 (5-13); BLOOD UREA NITROGEN 12 mg/dl (7-20); CALCIUM 9.4 mg/dl (8.4-10.2); CARBON DIOXIDE 25 mmol/L (21-31); CHLORIDE 104 mmol/L (97-110); Estimated GFR > 60 mL/min (>60); GLUCOSE 135 mg/dl (70-220); POTASSIUM 4.1 mmol/L (3.5-5.1); SODIUM 139 mmol/L (135-144)
[2018-08-21] MEDS: GEMFIBROZIL 600 MG TAB PO (08:46)
[2018-08-21] MEDS: ACETYLCYSTEINE 600 MG CAP PO (08:47)
[2018-08-21] MEDS: FISH OIL 1,000 MG CAP PO (08:47)
[2018-08-21] MEDS: ASPIRIN 81 MG TAB PO (08:48)
[2018-08-21] MEDS: metFORMIN 850 MG TAB PO (08:48)
[2018-08-21] MEDS: INSULIN ASPART [NOVOLOG] 3 ML PEN SC ×2 (08:49→12:27)
[2018-08-21] MEDS: INSULIN GLARGINE [LANTus] (100 UNITS/ML) SYG SC (08:51)
[2018-08-21] MEDS: COLLAGENASE 5 GM (UD JAR) TOP (08:51)
[2018-08-21] MEDS: CLOTRIMAZOLE 1% 30 GM CR TOP (08:51)
[2018-08-21] MEDS: REPAGLINIDE 1 MG TAB PO ×2 (08:54→12:28)
== END 2018-08-21 14:55 | disposition home health service (06) | DRG 617 ==
LOC: PP2 22:22 → E/R 17:49 → PP2 08-14 01:09
PROC: 0Y6M0ZF Detachment at Right Foot, Partial 5th Ray, Open Approach (ICD-10-PCS; principal; 2018-08-18 10:28)
PROC: 0YBN0ZZ Excision of Left Foot, Open Approach (ICD-10-PCS; 2018-08-18 10:28)
PROC: 0YBM0ZZ Excision of Right Foot, Open Approach (ICD-10-PCS; 2018-08-18 10:28)
PROC: B41DYZZ Fluoroscopy of Aorta and Bilateral Lower Extremity Arteries using Other Contrast (ICD-10-PCS; 2018-08-18 10:28)
PROC: 02HV33Z Insertion of Infusion Device into Superior Vena Cava, Percutaneous Approach (ICD-10-PCS; 2018-08-18 10:28)
DX: E11.69 Type 2 diabetes mellitus with other specified complication (principal); L03.115 Cellulitis of right lower limb; M86.671 Other chronic osteomyelitis, right ankle and foot; E11.52 Type 2 diabetes mellitus with diabetic peripheral angiopathy with gangrene; E11.621 Type 2 diabetes mellitus with foot ulcer; E11.65 Type 2 diabetes mellitus with hyperglycemia; E66.9 Obesity, unspecified; E11.610 Type 2 diabetes mellitus with diabetic neuropathic arthropathy; E11.42 Type 2 diabetes mellitus with diabetic polyneuropathy; L97.522 Non-pressure chronic ulcer of other part of left foot with fat layer exposed; B35.3 Tinea pedis; L97.519 Non-pressure chronic ulcer of other part of right foot with unspecified severity; E78.2 Mixed hyperlipidemia; Z68.35 Body mass index [BMI] 35.0-35.9, adult; Z79.4 Long term (current) use of insulin; Z71.3 Dietary counseling and surveillance; Z89.411 Acquired absence of right great toe; Z89.422 Acquired absence of other left toe(s)
CPT/HCPCS: 36246; 36569; 71045; 73610; 73620; 73630; 73630-LT; 73718; 73721; 75630; 76937; 80048; 80053; 80061; 80202; 81003; 82962; 83036; 83735; 84443; 85025; 85610; 85651; 85730; 87040; 87070; 88304; 88311; 93922; 93970; 99285-25

== ENCOUNTER → 2018-12-08 | Outpatient (CLI) | payer OTHER ==
[~2018-12-08] MED LIST: LIDOCAINE 1% (MPF) 5 ML VIAL SC
== END | disposition home or self-care (01) ==
LOC: RAD 08:49
DX: M86.8X7 Other osteomyelitis, ankle and foot (principal)
CPT/HCPCS: 36569; 71045; 76937

== ENCOUNTER 2018-12-10 11:18 | Inpatient (IN) | payer OTHER ==
[2018-12-10] MEDS: ONDANSETRON 4 MG INJ IV (12:17)
[2018-12-10] MEDS: SODIUM CHLORIDE 0.9% 1L BAG IV* (12:17)
[2018-12-10] MEDS: HYDROmorphONE 1 MG/ML SYG IV (12:18)
[2018-12-10 12:23] LABS: ADD MAN DIFF? NO
[2018-12-10] MEDS: CEFEPIME 2GM/50 ML (PMX) 50 ML IVPB ×2 (12:29→20:45)
[2018-12-10 12:42] LABS: WHITE BLOOD COUNT 18.3 10^3/ul (4.8-10.8)
[2018-12-10 12:42] LABS: BASOPHIL # 0.1 10^3/ul (0.0-0.1); BASOPHILS % 0.5 % (0.0-2.0); EOSINOPHILS # 0.3 10^3/ul (0.0-0.5); EOSINOPHILS % 1.5 % (0.0-7.0); HEMATOCRIT 41.8 % (42.0-52.0); HEMOGLOBIN 14.1 g/dl (14.0-18.0); LYMPHOCYTES # 1.8 10^3/ul (0.8-2.9); LYMPHOCYTES % 9.6 % (15.0-51.0); MEAN CORPUSCULAR HEMOGLOBIN 28.3 pg (29.0-33.0); MEAN CORPUSCULAR HGB CONC 33.7 g/dl (32.0-37.0); MEAN CORPUSCULAR VOLUME 83.9 fl (82.0-101.0); MEAN PLATELET VOLUME 10.9 fl (7.4-10.4); MONOCYTE # 0.8 10^3/ul (0.3-0.9); MONOCYTES % 4.4 % (0.0-11.0); NEUTROPHIL # 15.2 10^3/ul (1.6-7.5); NEUTROPHILS % 83.2 % (39.0-77.0); PLATELET COUNT 346 10^3/UL (140-415); RED BLOOD COUNT 4.98 10^6/ul (4.70-6.10); RED CELL DISTRIBUTION WIDTH 13.7 % (11.5-14.5)
[2018-12-10 12:48] LABS: INR 1.01; PROTIME 13.4 Sec (11.9-14.9)
[2018-12-10 12:49] LABS: PARTIAL THROMBOPLASTIN TIME 28.8 Sec (23.0-35.0)
[2018-12-10 12:52] LABS: ANION GAP 11 (5-13); BLOOD UREA NITROGEN 21 mg/dl (7-20); CARBON DIOXIDE 23 mmol/L (21-31); CHLORIDE 102 mmol/L (97-110); CREATININE 0.94 mg/dl (0.61-1.24); Estimated GFR > 60 mL/min (>60); POTASSIUM 4.1 mmol/L (3.5-5.1); SODIUM 136 mmol/L (135-144)
[2018-12-10 12:56] LABS: GLUCOSE 403 mg/dl (70-220)
[2018-12-10] MEDS ORDERED: ACETAMINOPHEN 325 MG TAB PO ×2 (13:00→15:00)
[2018-12-10] MEDS: INSULIN LISPRO 100 UNIT/ML VIAL SC (13:00)
[2018-12-10] MEDS ORDERED: ONDANSETRON 4 MG INJ IV ×2 (13:00→15:00)
[2018-12-10 13:06] LABS: C-REACTIVE PROTEIN 23.7 mg/dl (0.0-0.9)
[2018-12-10 13:47] LABS: ERYTHROCYTE SEDIMENTATION RATE 74 mm/Hr (0-15)
[2018-12-10] MEDS: VANCOMYCIN 1 GM (PMX) 250 ML IVPB (13:47)
[2018-12-10 14:48] LABS: LACTIC ACID 0.9 mmol/L (0.5-2.0)
[2018-12-10] MEDS ORDERED: NACL 0.9% 3 ML SYG IV (15:00)
[2018-12-10] MEDS ORDERED: ACETAMINOPHEN 650 MG SUPP PR (15:00)
[2018-12-10] MEDS ORDERED: MAGNESIUM HYDROXIDE 30ML CUP PO (15:00)
[2018-12-10] MEDS ORDERED: DOCUSATE SODIUM 100 MG CAP PO (15:00)
[2018-12-10] MEDS ORDERED: HYDROCODONE/APAP (5/325) TAB PO (15:00)
[2018-12-10] MEDS ORDERED: BISACODYL 10 MG SUPP PR (15:00)
[2018-12-10] MEDS: morphine 2 MG INJ IV ×2 (15:32→20:41)
[2018-12-10] MEDS ORDERED: VANCOMYCIN IV PER PHARMACY XX (16:00)
[2018-12-10] MEDS: SOD CHLORIDE 0.9% 1,000 ML IV (16:04)
[2018-12-10] MEDS ORDERED: GLUCOSE GEL 15 GRAM TUBE PO ×2 (16:30)
[2018-12-10] MEDS ORDERED: GLUCOSE GEL 15 GRAM TUBE BUCCAL (16:30)
[2018-12-10] MEDS ORDERED: GLUCAGON 1 MG INJ IM (16:30)
[2018-12-10] MEDS ORDERED: DEXTROSE 50% 50 ML SYRINGE IV ×2 (16:30)
[2018-12-10 16:46] LABS: LACTIC ACID 1.1 mmol/L (0.5-2.0)
[2018-12-10] MEDS: VANCOMYCIN 1 GM 250 ML IVPB (17:29)
[2018-12-10] MEDS: INSULIN ASPART [NOVOLOG] 3 ML PEN SC ×2 (17:33→20:35)
[2018-12-10] MEDS: NATEGLINIDE 120 MG TAB PO (17:46)
[2018-12-10] MEDS: metFORMIN 850 MG TAB PO (17:49)
[2018-12-10] MEDS ORDERED: INSULIN ASPART [NOVOLOG] 3 ML PEN SC (18:00)
[2018-12-10 20:04] LABS: ADD UMIC NO; UR ASCORBIC ACID NEGATIVE (NEGATIVE); UR BILIRUBIN (Dip) NEGATIVE (NEGATIVE); UR BLOOD (Dip) NEGATIVE (NEGATIVE); UR CLARITY CLEAR (CLEAR); UR COLOR YELLOW (YELLOW); UR GLUCOSE (Dip) 3+ mg/dL (NEGATIVE); UR KETONES (Dip) NEGATIVE (NEGATIVE); UR LEUKOCYTE ESTERASE (Dip) NEGATIVE Leu/ul (NEGATIVE); UR NITRITE (Dip) NEGATIVE (NEGATIVE); UR SPECIFIC GRAVITY (Dip) 1.028 (1.003-1.030); UR TOTAL PROTEIN (Dip) NEGATIVE (NEGATIVE); UR UROBILINOGEN (Dip) NEGATIVE (NEGATIVE)
[2018-12-10] MEDS: ATORVASTATIN 80 MG TAB PO (20:32)
[2018-12-10] MEDS: FISH OIL 1,000 MG CAP PO (20:32)
[2018-12-10] MEDS: INSULIN GLARGINE [LANTus] (100 UNITS/ML) SYG SC (20:34)
[2018-12-10] MEDS ORDERED: ATORVASTATIN 40 MG TAB PO (21:00)
[2018-12-10] MEDS: HYDROCODONE/APAP (5/325) TAB PO (22:42)
[2018-12-11] MEDS: ACCU-CHEK XX (02:21)
[2018-12-11 05:21] LABS: ADD MAN DIFF? NO
[2018-12-11 05:27] LABS: BASOPHIL # 0.1 10^3/ul (0.0-0.1); BASOPHILS % 0.4 % (0.0-2.0); EOSINOPHILS # 0.3 10^3/ul (0.0-0.5); EOSINOPHILS % 2.4 % (0.0-7.0); HEMATOCRIT 36.3 % (42.0-52.0); LYMPHOCYTES # 2.3 10^3/ul (0.8-2.9); LYMPHOCYTES % 16.6 % (15.0-51.0); MEAN CORPUSCULAR HEMOGLOBIN 28.4 pg (29.0-33.0); MEAN CORPUSCULAR HGB CONC 33.1 g/dl (32.0-37.0); MEAN CORPUSCULAR VOLUME 85.8 fl (82.0-101.0); MEAN PLATELET VOLUME 10.7 fl (7.4-10.4); MONOCYTE # 0.6 10^3/ul (0.3-0.9); MONOCYTES % 4.4 % (0.0-11.0); NEUTROPHIL # 10.6 10^3/ul (1.6-7.5); NEUTROPHILS % 75.4 % (39.0-77.0); PLATELET COUNT 298 10^3/UL (140-415); RED BLOOD COUNT 4.23 10^6/ul (4.70-6.10); RED CELL DISTRIBUTION WIDTH 13.7 % (11.5-14.5)
[2018-12-11] MEDS: PANTOPRAZOLE (EC) 40 MG TAB PO (05:27)
[2018-12-11] MEDS: VANCOMYCIN HCL 1.75 GM in SOD CHLORIDE 0.9% 500 ML IVPB ×2 (05:27→17:07)
[2018-12-11] MEDS: SOD CHLORIDE 0.9% 1,000 ML IV ×2 (05:28→18:40)
[2018-12-11 05:45] LABS: ALANINE AMINOTRANSFERASE 25 IU/L (13-69); ALBUMIN/GLOBULIN RATIO 0.93; ALKALINE PHOSPHATASE 127 IU/L (42-121); ANION GAP 8 (5-13); ASPARTATE AMINO TRANSFERASE 14 IU/L (15-46); BILIRUBIN,INDIRECT 0.6 mg/dl (0-1.1); BILIRUBIN,TOTAL 0.6 mg/dl (0.2-1.3); BLOOD UREA NITROGEN 15 mg/dl (7-20); CALCIUM 8.4 mg/dl (8.4-10.2); CARBON DIOXIDE 24 mmol/L (21-31); CHLORIDE 107 mmol/L (97-110); CREATININE 0.73 mg/dl (0.61-1.24); Estimated GFR > 60 mL/min (>60); GLUCOSE 150 mg/dl (70-220); MAGNESIUM 1.8 mg/dl (1.7-2.5); PHOSPHORUS 3.5 mg/dl (2.5-4.9); POTASSIUM 3.8 mmol/L (3.5-5.1); SODIUM 139 mmol/L (135-144); TOTAL PROTEIN 6.2 g/dl (6.1-8.1)
[2018-12-11 05:46] LABS: CHOL/HDL RATIO 4.4 RATIO; CHOLESTEROL 124 mg/dl (100-200); HDL CHOLESTEROL 28 mg/dl (28-63); LDL CHOLESTEROL,CALCULATED 45 mg/dl; TRIGLYCERIDES 255 mg/dl (0-149)
[2018-12-11 05:57] LABS: HEMOGLOBIN A1C 12.2 % (0-5.9)
[2018-12-11] MEDS ORDERED: PANTOPRAZOLE 40 MG INJ IV (06:00)
[2018-12-11 06:02] LABS: FREE THYROXINE INDEX (Calc) 2.52 ug/ml (0.65-3.89); T3 UPTAKE 45.8 % (23.5-40.5); T4 (THYROXINE) 5.5 ug/dl (5.5-11.0)
[2018-12-11] MEDS: ASPIRIN (EC) 81 MG TAB PO (08:32)
[2018-12-11] MEDS: FISH OIL 1,000 MG CAP PO ×2 (08:32→20:52)
[2018-12-11] MEDS: metFORMIN 850 MG TAB PO ×2 (08:32→17:08)
[2018-12-11] MEDS: NATEGLINIDE 120 MG TAB PO ×3 (08:32→17:08)
[2018-12-11] MEDS: INSULIN ASPART [NOVOLOG] 3 ML PEN SC ×4 (08:35→20:59)
[2018-12-11] MEDS: CEFEPIME 2GM/50 ML (PMX) 50 ML IVPB (09:45)
[2018-12-11] MEDS: HYDROCODONE/APAP (5/325) TAB PO ×2 (12:32→20:53)
[2018-12-11] MEDS: MEROPENEM 1 GM/50ML(PMX) 50 ML IVPB ×2 (15:13→22:12)
[2018-12-11] MEDS: ATORVASTATIN 80 MG TAB PO (20:53)
[2018-12-11] MEDS: INSULIN GLARGINE [LANTus] (100 UNITS/ML) SYG SC (20:59)
[2018-12-12] MEDS: ACCU-CHEK XX (02:22)
[2018-12-12 04:25] LABS: ADD MAN DIFF? NO
[2018-12-12 04:29] LABS: WHITE BLOOD COUNT 10.7 10^3/ul (4.8-10.8)
[2018-12-12 04:29] LABS: BASOPHILS % 0.4 % (0.0-2.0); EOSINOPHILS # 0.4 10^3/ul (0.0-0.5); EOSINOPHILS % 3.4 % (0.0-7.0); HEMATOCRIT 35.6 % (42.0-52.0); HEMOGLOBIN 11.9 g/dl (14.0-18.0); LYMPHOCYTES # 1.8 10^3/ul (0.8-2.9); LYMPHOCYTES % 16.4 % (15.0-51.0); MEAN CORPUSCULAR HEMOGLOBIN 28.9 pg (29.0-33.0); MEAN CORPUSCULAR HGB CONC 33.4 g/dl (32.0-37.0); MEAN CORPUSCULAR VOLUME 86.4 fl (82.0-101.0); MEAN PLATELET VOLUME 10.3 fl (7.4-10.4); MONOCYTE # 0.5 10^3/ul (0.3-0.9); MONOCYTES % 4.8 % (0.0-11.0); NEUTROPHIL # 7.9 10^3/ul (1.6-7.5); NEUTROPHILS % 74.2 % (39.0-77.0); PLATELET COUNT 313 10^3/UL (140-415); RED BLOOD COUNT 4.12 10^6/ul (4.70-6.10); RED CELL DISTRIBUTION WIDTH 13.6 % (11.5-14.5)
[2018-12-12 04:46] LABS: ANION GAP 8 (5-13); BLOOD UREA NITROGEN 13 mg/dl (7-20); CALCIUM 8.2 mg/dl (8.4-10.2); CARBON DIOXIDE 23 mmol/L (21-31); CHLORIDE 108 mmol/L (97-110); CREATININE 0.76 mg/dl (0.61-1.24); Estimated GFR > 60 mL/min (>60); GLUCOSE 249 mg/dl (70-220); SODIUM 139 mmol/L (135-144)
[2018-12-12 04:47] LABS: CHOL/HDL RATIO 5.8 RATIO; HDL CHOLESTEROL 20 mg/dl (28-63); LDL CHOLESTEROL,CALCULATED 51 mg/dl; TRIGLYCERIDES 224 mg/dl (0-149)
[2018-12-12 04:47] LABS: CHOLESTEROL 116 mg/dl (100-200)
[2018-12-12 05:02] LABS: VANCOMYCIN,TROUGH 8.9 ug/ml (10.0-20.0)
[2018-12-12] MEDS: ALTEPLASE (CATHFLO) 2 MG INJ CATHETER (05:22)
[2018-12-12] MEDS: PANTOPRAZOLE (EC) 40 MG TAB PO (05:23)
[2018-12-12] MEDS: MEROPENEM 1 GM/50ML(PMX) 50 ML IVPB ×2 (06:08→14:26)
[2018-12-12] MEDS: VANCOMYCIN HCL 1.75 GM in SOD CHLORIDE 0.9% 500 ML IVPB (06:53)
[2018-12-12] MEDS: SOD CHLORIDE 0.9% 1,000 ML IV ×2 (08:00→20:47)
[2018-12-12] MEDS: FISH OIL 1,000 MG CAP PO ×2 (08:39→20:44)
[2018-12-12] MEDS: NATEGLINIDE 120 MG TAB PO ×3 (08:39→17:40)
[2018-12-12] MEDS: ASPIRIN (EC) 81 MG TAB PO (08:39)
[2018-12-12] MEDS: metFORMIN 850 MG TAB PO ×2 (08:40→17:40)
[2018-12-12] MEDS: INSULIN ASPART [NOVOLOG] 3 ML PEN SC ×4 (08:54→20:47)
[2018-12-12] MEDS ORDERED: VANCOMYCIN HCL 1.5 GM in SOD CHLORIDE 0.9% 250 ML IVPB (13:00)
[2018-12-12] MEDS: HYDROCODONE/APAP (5/325) TAB PO ×2 (14:51→21:58)
[2018-12-12] MEDS: VANCOMYCIN HCL 1.5 GM in SOD CHLORIDE 0.9% 250 ML IVPB (15:22)
[2018-12-12] MEDS: ATORVASTATIN 80 MG TAB PO (20:44)
[2018-12-12] MEDS: INSULIN GLARGINE [LANTus] (100 UNITS/ML) SYG SC (20:47)
== END 2018-12-12 22:08 | disposition home health service (06) | DRG 638 ==
LOC: 2NE 14:52 → E/R 11:18 → 2NE 12:45
PROVIDERS: Internal Medicine
DX: E11.621 Type 2 diabetes mellitus with foot ulcer (principal); M86.9 Osteomyelitis, unspecified; E11.65 Type 2 diabetes mellitus with hyperglycemia; E11.610 Type 2 diabetes mellitus with diabetic neuropathic arthropathy; E11.69 Type 2 diabetes mellitus with other specified complication; L97.519 Non-pressure chronic ulcer of other part of right foot with unspecified severity; Z72.0 Tobacco use; B96.20 Unspecified Escherichia coli [E. coli] as the cause of diseases classified elsewhere; B95.4 Other streptococcus as the cause of diseases classified elsewhere; Z16.12 Extended spectrum beta lactamase (ESBL) resistance; E78.2 Mixed hyperlipidemia; Z89.422 Acquired absence of other left toe(s); Z89.421 Acquired absence of other right toe(s)
CPT/HCPCS: 36415; 73630-LT; 80048; 80053; 80061; 80202; 81003; 82962; 83036; 83605; 83735; 84100; 84436; 84443; 84479; 85025; 85610; 85651; 85730; 86140; 87040-91; 87070; 93005; 96365; 96375; 99285-25

== ENCOUNTER 2019-02-02 13:59 | Emergency (ER) | payer OTHER ==
[2019-02-02] MEDS: LIDOCAINE 1% (MPF) 5 ML VIAL SC (16:00)
== END 2019-02-02 17:37 | disposition home or self-care (01) ==
LOC: FTE 13:59
DX: L73.9 Follicular disorder, unspecified (principal); Y71.2 Prosthetic and other implants, materials and accessory cardiovascular devices associated with adverse incidents; Z79.82 Long term (current) use of aspirin; Z79.84 Long term (current) use of oral hypoglycemic drugs; Z87.891 Personal history of nicotine dependence; Z45.2 Encounter for adjustment and management of vascular access device
CPT/HCPCS: 36569; 71045; 76937; 99284-25

== ENCOUNTER 2019-02-19 16:22 | Inpatient (IN) | payer OTHER ==
[2019-02-19 18:02] LABS: ADD MAN DIFF? NO
[2019-02-19 18:04] LABS: WHITE BLOOD COUNT 12.6 10^3/ul (4.8-10.8)
[2019-02-19 18:04] LABS: BASOPHIL # 0.1 10^3/ul (0.0-0.1); BASOPHILS % 0.5 % (0.0-2.0); EOSINOPHILS # 0.3 10^3/ul (0.0-0.5); EOSINOPHILS % 2.4 % (0.0-7.0); HEMATOCRIT 44.1 % (42.0-52.0); HEMOGLOBIN 14.6 g/dl (14.0-18.0); LYMPHOCYTES % 15.9 % (15.0-51.0); MEAN CORPUSCULAR HEMOGLOBIN 28.7 pg (29.0-33.0); MEAN CORPUSCULAR HGB CONC 33.1 g/dl (32.0-37.0); MEAN CORPUSCULAR VOLUME 86.6 fl (82.0-101.0); MEAN PLATELET VOLUME 10.7 fl (7.4-10.4); MONOCYTE # 0.6 10^3/ul (0.3-0.9); MONOCYTES % 4.9 % (0.0-11.0); NEUTROPHIL # 9.5 10^3/ul (1.6-7.5); NEUTROPHILS % 75.6 % (39.0-77.0); PLATELET COUNT 340 10^3/UL (140-415); RED BLOOD COUNT 5.09 10^6/ul (4.70-6.10); RED CELL DISTRIBUTION WIDTH 14.3 % (11.5-14.5)
[2019-02-19 18:24] LABS: INR 0.88; PT RATIO 0.9
[2019-02-19 18:25] LABS: PARTIAL THROMBOPLASTIN TIME 29.3 Sec (23.0-35.0)
[2019-02-19 18:26] LABS: ANION GAP 11 (5-13); BLOOD UREA NITROGEN 14 mg/dl (7-20); CALCIUM 10.2 mg/dl (8.4-10.2); CARBON DIOXIDE 26 mmol/L (21-31); CHLORIDE 98 mmol/L (97-110); Estimated GFR > 60 mL/min (>60); GLUCOSE 397 mg/dl (70-220); POTASSIUM 4.6 mmol/L (3.5-5.1); SODIUM 135 mmol/L (135-144)
[2019-02-19] MEDS: SOD CHLORIDE 0.9% 1,000 ML IV ×2 (19:09→23:45)
[2019-02-19] MEDS: morphine 4 MG/ML VIAL IV (19:09)
[2019-02-19] MEDS: IOHEXOL 300MG/ML 150 ML BTL (19:12)
[2019-02-19] MEDS: SOD CHLORIDE 0.9% 100 ML (19:12)
[2019-02-19] MEDS: HEPARIN 25000 UNITS/250 ML 250 ML IV (19:59)
[2019-02-19 20:09] LABS: TROPONIN-I < 0.012 ng/ml (0.000-0.120)
[2019-02-19] MEDS: HYDROmorphONE 2 MG/ML SYG IV (20:40)
[2019-02-19] MEDS ORDERED: ONDANSETRON 4 MG INJ IV ×2 (21:00→23:30)
[2019-02-19] MEDS ORDERED: ACETAMINOPHEN 325 MG TAB PO ×2 (21:00→23:30)
[2019-02-19 22:49] LABS: PARTIAL THROMBOPLASTIN TIME 39.9 Sec (23.0-35.0)
[2019-02-19] MEDS ORDERED: INSULIN GLARGINE [LANTus] (100 UNITS/ML) SYG SC (23:00)
[2019-02-19] MEDS ORDERED: NACL 0.9% 3 ML SYG IV (23:30)
[2019-02-19] MEDS ORDERED: ALBUTEROL/IPRATROPIUM (NEB) 3 ML AMP HHN (23:30)
[2019-02-19] MEDS ORDERED: DEXTROSE 50% 50 ML SYRINGE IV ×2 (23:45)
[2019-02-19] MEDS ORDERED: GLUCAGON 1 MG INJ IM (23:45)
[2019-02-19] MEDS ORDERED: GLUCOSE GEL 15 GRAM TUBE PO ×2 (23:45)
[2019-02-19] MEDS ORDERED: GLUCOSE GEL 15 GRAM TUBE BUCCAL (23:45)
[2019-02-20] MEDS: SUMATRIPTAN 6 MG/0.5 ML INJ SC (01:21)
[2019-02-20] MEDS ORDERED: VANCOMYCIN IV PER PHARMACY XX (02:00)
[2019-02-20] MEDS: ACCU-CHEK XX (02:00)
[2019-02-20] MEDS: morphine 4 MG/ML VIAL IV (02:06)
[2019-02-20] MEDS: PIPER-TAZO 3.375 GM IV (PMX) 100 ML IVPB ×2 (02:10→09:34)
[2019-02-20 02:19] LABS: PARTIAL THROMBOPLASTIN TIME 47.3 Sec (23.0-35.0)
[2019-02-20] MEDS: VANCOMYCIN HCL 2 GM in SOD CHLORIDE 0.9% 500 ML IVPB (03:22)
[2019-02-20] MEDS ORDERED: HEPARIN 1000 UNITS/ML 10 ML INJ IV ×2 (04:00→10:00)
[2019-02-20] MEDS: HEPARIN 25000 UNITS/250 ML 250 ML IV (04:20)
[2019-02-20] MEDS: HEPARIN 1000 UNITS/ML 10 ML INJ IV (04:46)
[2019-02-20 05:28] LABS: ADD MAN DIFF? NO
[2019-02-20 05:30] LABS: BASOPHIL # 0.1 10^3/ul (0.0-0.1); BASOPHILS % 0.6 % (0.0-2.0); EOSINOPHILS # 0.3 10^3/ul (0.0-0.5); EOSINOPHILS % 3.2 % (0.0-7.0); HEMATOCRIT 41.9 % (42.0-52.0); LYMPHOCYTES # 2.3 10^3/ul (0.8-2.9); LYMPHOCYTES % 22.8 % (15.0-51.0); MEAN CORPUSCULAR HEMOGLOBIN 29.2 pg (29.0-33.0); MEAN CORPUSCULAR HGB CONC 33.4 g/dl (32.0-37.0); MEAN CORPUSCULAR VOLUME 87.3 fl (82.0-101.0); MEAN PLATELET VOLUME 10.9 fl (7.4-10.4); MONOCYTE # 0.5 10^3/ul (0.3-0.9); MONOCYTES % 4.9 % (0.0-11.0); NEUTROPHIL # 6.9 10^3/ul (1.6-7.5); NEUTROPHILS % 67.7 % (39.0-77.0); PLATELET COUNT 317 10^3/UL (140-415); RED CELL DISTRIBUTION WIDTH 14.7 % (11.5-14.5)
[2019-02-20 05:30] LABS: WHITE BLOOD COUNT 10.2 10^3/ul (4.8-10.8)
[2019-02-20] MEDS: PANTOPRAZOLE (EC) 40 MG TAB PO (05:38)
[2019-02-20 06:01] LABS: ALANINE AMINOTRANSFERASE 38 IU/L (13-69); ALBUMIN 3.6 g/dl (3.3-4.9); ALBUMIN/GLOBULIN RATIO 1.02; ALKALINE PHOSPHATASE 125 IU/L (42-121); ANION GAP 10 (5-13); ASPARTATE AMINO TRANSFERASE 36 IU/L (15-46); BILIRUBIN,INDIRECT 0.6 mg/dl (0-1.1); BILIRUBIN,TOTAL 0.6 mg/dl (0.2-1.3); BLOOD UREA NITROGEN 12 mg/dl (7-20); CALCIUM 8.9 mg/dl (8.4-10.2); CARBON DIOXIDE 26 mmol/L (21-31); CHLORIDE 99 mmol/L (97-110); CHOL/HDL RATIO 4.8 RATIO; CHOLESTEROL 137 mg/dl (100-200); CREATININE 0.72 mg/dl (0.61-1.24); Estimated GFR > 60 mL/min (>60); GLUCOSE 285 mg/dl (70-220); HDL CHOLESTEROL 28 mg/dl (28-63); LDL CHOLESTEROL,CALCULATED 15 mg/dl; MAGNESIUM 1.7 mg/dl (1.7-2.5); PHOSPHORUS 4.3 mg/dl (2.5-4.9); POTASSIUM 4.1 mmol/L (3.5-5.1); SODIUM 135 mmol/L (135-144); TOTAL PROTEIN 7.1 g/dl (6.1-8.1); TRIGLYCERIDES 468 mg/dl (0-149)
[2019-02-20 07:02] LABS: HEMOGLOBIN A1C 11.4 % (0-5.9)
[2019-02-20] MEDS: INSULIN ASPART [NOVOLOG] 3 ML PEN SC ×7 (08:06→21:00)
[2019-02-20] MEDS ORDERED: HEPARIN 5,000 UNIT/1 ML VIAL SC (09:00)
[2019-02-20] MEDS ORDERED: NON-FORMULARY/PATIENT OWN MED (Omeprazole* 20 MG) PO (09:00)
[2019-02-20] MEDS: ASPIRIN (EC) 81 MG TAB PO (09:34)
[2019-02-20] MEDS: FISH OIL 1,000 MG CAP PO ×2 (09:34→21:19)
[2019-02-20] MEDS: HYDROCODONE/APAP (5/325) TAB PO ×3 (10:37→21:24)
[2019-02-20 11:35] LABS: PARTIAL THROMBOPLASTIN TIME 86.6 Sec (23.0-35.0)
[2019-02-20] MEDS: SOD CHLORIDE 0.9% 1,000 ML IV (12:00)
[2019-02-20] MEDS: APIXABAN 5 MG TABLET PO ×2 (15:01→21:19)
[2019-02-20 19:38] LABS: PARTIAL THROMBOPLASTIN TIME 30.6 Sec (23.0-35.0)
[2019-02-20] MEDS: ATORVASTATIN 80 MG TAB PO (21:19)
[2019-02-20] MEDS: INSULIN GLARGINE [LANTus] (100 UNITS/ML) SYG SC (21:25)
[2019-02-21] MEDS: SOD CHLORIDE 0.9% 1,000 ML IV (00:43)
[2019-02-21] MEDS: HYDROCODONE/APAP (5/325) TAB PO ×2 (00:44→09:22)
[2019-02-21] MEDS: ACCU-CHEK XX (01:45)
[2019-02-21] MEDS: PANTOPRAZOLE (EC) 40 MG TAB PO (06:22)
[2019-02-21] MEDS: INSULIN ASPART [NOVOLOG] 3 ML PEN SC ×7 (07:55→21:52)
[2019-02-21] MEDS: ASPIRIN (EC) 81 MG TAB PO (09:20)
[2019-02-21] MEDS: FISH OIL 1,000 MG CAP PO ×2 (09:20→21:48)
[2019-02-21] MEDS: APIXABAN 5 MG TABLET PO ×2 (09:21→21:48)
[2019-02-21] MEDS: morphine 2 MG INJ IV ×2 (15:41→21:54)
[2019-02-21] MEDS: ATORVASTATIN 80 MG TAB PO (21:48)
[2019-02-21] MEDS: INSULIN GLARGINE [LANTus] (100 UNITS/ML) SYG SC (21:52)
[2019-02-22] MEDS: ACCU-CHEK XX (02:00)
[2019-02-22 05:13] LABS: ADD MAN DIFF? NO
[2019-02-22 05:32] LABS: BASOPHIL # 0.1 10^3/ul (0.0-0.1); BASOPHILS % 0.5 % (0.0-2.0); EOSINOPHILS # 0.4 10^3/ul (0.0-0.5); EOSINOPHILS % 3.5 % (0.0-7.0); HEMATOCRIT 42.1 % (42.0-52.0); HEMOGLOBIN 13.7 g/dl (14.0-18.0); LYMPHOCYTES % 16.8 % (15.0-51.0); MEAN CORPUSCULAR HEMOGLOBIN 28.8 pg (29.0-33.0); MEAN CORPUSCULAR HGB CONC 32.5 g/dl (32.0-37.0); MEAN CORPUSCULAR VOLUME 88.6 fl (82.0-101.0); MEAN PLATELET VOLUME 10.4 fl (7.4-10.4); MONOCYTE # 0.5 10^3/ul (0.3-0.9); MONOCYTES % 4.6 % (0.0-11.0); NEUTROPHIL # 8.6 10^3/ul (1.6-7.5); PLATELET COUNT 349 10^3/UL (140-415); RED BLOOD COUNT 4.75 10^6/ul (4.70-6.10); RED CELL DISTRIBUTION WIDTH 14.2 % (11.5-14.5)
[2019-02-22 05:32] LABS: WHITE BLOOD COUNT 11.6 10^3/ul (4.8-10.8)
[2019-02-22 05:57] LABS: ANION GAP 6 (5-13); BLOOD UREA NITROGEN 11 mg/dl (7-20); CALCIUM 8.1 mg/dl (8.4-10.2); CARBON DIOXIDE 29 mmol/L (21-31); CHLORIDE 100 mmol/L (97-110); CREATININE 0.76 mg/dl (0.61-1.24); Estimated GFR > 60 mL/min (>60); GLUCOSE 227 mg/dl (70-220); MAGNESIUM 1.9 mg/dl (1.7-2.5); PHOSPHORUS 3.2 mg/dl (2.5-4.9); POTASSIUM 3.8 mmol/L (3.5-5.1); SODIUM 135 mmol/L (135-144)
[2019-02-22] MEDS: PANTOPRAZOLE (EC) 40 MG TAB PO (06:43)
[2019-02-22] MEDS: morphine 2 MG INJ IV (07:04)
[2019-02-22] MEDS: INSULIN ASPART [NOVOLOG] 3 ML PEN SC ×7 (07:42→20:34)
[2019-02-22] MEDS: FISH OIL 1,000 MG CAP PO ×2 (08:28→20:25)
[2019-02-22] MEDS: APIXABAN 5 MG TABLET PO ×2 (08:28→20:26)
[2019-02-22] MEDS: ASPIRIN (EC) 81 MG TAB PO (08:28)
[2019-02-22] MEDS: metFORMIN 850 MG TAB PO ×2 (10:09→17:38)
[2019-02-22] MEDS: OXYCODONE/ACETAMINOPHEN (5/325) TAB PO ×2 (14:17→20:30)
[2019-02-22] MEDS: ATORVASTATIN 80 MG TAB PO (20:25)
[2019-02-22] MEDS: INSULIN GLARGINE [LANTus] (100 UNITS/ML) SYG SC (20:29)
[2019-02-23] MEDS: ACCU-CHEK XX (02:19)
[2019-02-23 06:17] LABS: ADD MAN DIFF? NO
[2019-02-23 06:24] LABS: WHITE BLOOD COUNT 10.5 10^3/ul (4.8-10.8)
[2019-02-23 06:24] LABS: BASOPHIL # 0.1 10^3/ul (0.0-0.1); BASOPHILS % 0.6 % (0.0-2.0); EOSINOPHILS # 0.5 10^3/ul (0.0-0.5); EOSINOPHILS % 4.3 % (0.0-7.0); HEMATOCRIT 42.9 % (42.0-52.0); HEMOGLOBIN 13.9 g/dl (14.0-18.0); LYMPHOCYTES # 2.2 10^3/ul (0.8-2.9); MEAN CORPUSCULAR HEMOGLOBIN 28.5 pg (29.0-33.0); MEAN CORPUSCULAR HGB CONC 32.4 g/dl (32.0-37.0); MEAN CORPUSCULAR VOLUME 87.9 fl (82.0-101.0); MEAN PLATELET VOLUME 10.4 fl (7.4-10.4); MONOCYTE # 0.5 10^3/ul (0.3-0.9); MONOCYTES % 4.7 % (0.0-11.0); NEUTROPHIL # 7.2 10^3/ul (1.6-7.5); NEUTROPHILS % 68.6 % (39.0-77.0); PLATELET COUNT 346 10^3/UL (140-415); RED BLOOD COUNT 4.88 10^6/ul (4.70-6.10); RED CELL DISTRIBUTION WIDTH 14.5 % (11.5-14.5)
[2019-02-23] MEDS: PANTOPRAZOLE (EC) 40 MG TAB PO (07:03)
[2019-02-23 07:08] LABS: ANION GAP 8 (5-13); BLOOD UREA NITROGEN 13 mg/dl (7-20); CARBON DIOXIDE 29 mmol/L (21-31); CHLORIDE 101 mmol/L (97-110); CREATININE 0.86 mg/dl (0.61-1.24); Estimated GFR > 60 mL/min (>60); GLUCOSE 167 mg/dl (70-220); MAGNESIUM 1.9 mg/dl (1.7-2.5); PHOSPHORUS 3.8 mg/dl (2.5-4.9); POTASSIUM 4.1 mmol/L (3.5-5.1); SODIUM 138 mmol/L (135-144)
[2019-02-23] MEDS: INSULIN ASPART [NOVOLOG] 3 ML PEN SC ×4 (07:46→12:05)
[2019-02-23] MEDS: metFORMIN 850 MG TAB PO ×2 (07:47→17:36)
[2019-02-23] MEDS: OXYCODONE/ACETAMINOPHEN (5/325) TAB PO ×2 (08:07→16:13)
[2019-02-23] MEDS: FISH OIL 1,000 MG CAP PO (08:08)
[2019-02-23] MEDS: APIXABAN 5 MG TABLET PO ×2 (08:08→17:37)
[2019-02-23] MEDS: ASPIRIN (EC) 81 MG TAB PO (08:08)
[2019-02-27] MEDS ORDERED: APIXABAN 5 MG TABLET PO (09:00)
== END 2019-02-23 18:03 | disposition home or self-care (01) | DRG 299 ==
LOC: E/R 16:22 → 6WM 20:37
DX: I82.C13 Acute embolism and thrombosis of internal jugular vein, bilateral (principal); I26.99 Other pulmonary embolism without acute cor pulmonale; M86.9 Osteomyelitis, unspecified; I82.621 Acute embolism and thrombosis of deep veins of right upper extremity; I82.890 Acute embolism and thrombosis of other specified veins; E11.65 Type 2 diabetes mellitus with hyperglycemia; E11.621 Type 2 diabetes mellitus with foot ulcer
CPT/HCPCS: 36415; 70492; 71260; 80048; 80053; 80061; 82962; 83036; 83735; 84100; 84484; 85025; 85610; 85730; 93005; 96374; 99285-25

== ENCOUNTER 2019-03-04 17:37 | Emergency (ER) | payer OTHER ==
[2019-03-04 20:12] LABS: ADD MAN DIFF? NO
[2019-03-04 20:20] LABS: WHITE BLOOD COUNT 12.1 10^3/ul (4.8-10.8)
[2019-03-04 20:20] LABS: BASOPHIL # 0.1 10^3/ul (0.0-0.1); BASOPHILS % 0.8 % (0.0-2.0); EOSINOPHILS # 0.5 10^3/ul (0.0-0.5); EOSINOPHILS % 4.4 % (0.0-7.0); HEMATOCRIT 41.5 % (42.0-52.0); HEMOGLOBIN 13.5 g/dl (14.0-18.0); LYMPHOCYTES # 2.1 10^3/ul (0.8-2.9); LYMPHOCYTES % 17.2 % (15.0-51.0); MEAN CORPUSCULAR HEMOGLOBIN 27.9 pg (29.0-33.0); MEAN CORPUSCULAR HGB CONC 32.5 g/dl (32.0-37.0); MEAN CORPUSCULAR VOLUME 85.7 fl (82.0-101.0); MEAN PLATELET VOLUME 10.5 fl (7.4-10.4); MONOCYTE # 0.6 10^3/ul (0.3-0.9); MONOCYTES % 4.6 % (0.0-11.0); NEUTROPHIL # 8.8 10^3/ul (1.6-7.5); NEUTROPHILS % 72.3 % (39.0-77.0); PLATELET COUNT 357 10^3/UL (140-415); RED BLOOD COUNT 4.84 10^6/ul (4.70-6.10); RED CELL DISTRIBUTION WIDTH 13.9 % (11.5-14.5)
[2019-03-04 20:43] LABS: ALANINE AMINOTRANSFERASE 41 IU/L (13-69); ALBUMIN 4.1 g/dl (3.3-4.9); ALBUMIN/GLOBULIN RATIO 1.05; ALKALINE PHOSPHATASE 211 IU/L (42-121); ANION GAP 10 (5-13); ASPARTATE AMINO TRANSFERASE 23 IU/L (15-46); BILIRUBIN,INDIRECT 0.4 mg/dl (0-1.1); BILIRUBIN,TOTAL 0.4 mg/dl (0.2-1.3); BLOOD UREA NITROGEN 14 mg/dl (7-20); CALCIUM 9.3 mg/dl (8.4-10.2); CARBON DIOXIDE 26 mmol/L (21-31); CHLORIDE 99 mmol/L (97-110); CREATININE 1.01 mg/dl (0.61-1.24); Estimated GFR > 60 mL/min (>60); GLUCOSE 372 mg/dl (70-220); POTASSIUM 4.2 mmol/L (3.5-5.1); SODIUM 135 mmol/L (135-144)
[2019-03-04 21:30] LABS: ERYTHROCYTE SEDIMENTATION RATE 75 mm/Hr (0-15)
== END 2019-03-04 23:00 | disposition home or self-care (01) ==
LOC: E/R 17:37
DX: E13.621 Other specified diabetes mellitus with foot ulcer (principal); L97.529 Non-pressure chronic ulcer of other part of left foot with unspecified severity; F17.210 Nicotine dependence, cigarettes, uncomplicated; Z79.4 Long term (current) use of insulin
CPT/HCPCS: 73630; 80053; 85025; 85651; 86140; 99284-25